=== PATIENT | male | born 1990 | race Two or more races ===

== ENCOUNTER 2021-03-18 00:36 | Emergency (ER) | payer OTHER ==
[~2021-03-18] VITALS: Ht 180.3 cm; Wt 60.8 kg
[2021-03-18] MEDS ORDERED: ZOFRAN8 MG PO (04:09)
[2021-03-18] MEDS ORDERED: PEPCID40 MG PO (04:09)
== END 2021-03-18 04:20 ==
LOC: ER 00:36
DX: R56.9 Unspecified convulsions (principal); F10.239 Alcohol dependence with withdrawal, unspecified; J01.00 Acute maxillary sinusitis, unspecified; K76.0 Fatty (change of) liver, not elsewhere classified